=== PATIENT | female | born 2000 | race Caucasian/White ===

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

== ENCOUNTER 2021-02-12 22:52 | Emergency (ER) | payer OTHER ==
[~2021-02-12 22:52] MED LIST: ZOFRAN ODT 4 MG4 MG PO
[2021-02-13] MEDS ORDERED: TYLENOL325 MG PO (01:47)
== END 2021-02-13 01:55 | disposition home or self-care (01) ==
LOC: GENOP 22:52 → ER1 22:52 → EDSTATUS 23:05 → ER1 02-13 01:55
DX: O9A.212 Injury, poisoning and certain other consequences of external causes complicating pregnancy, second trimester (principal); R10.9 Unspecified abdominal pain; S09.90XA Unspecified injury of head, initial encounter; O99.332 Smoking (tobacco) complicating pregnancy, second trimester; F17.200 Nicotine dependence, unspecified, uncomplicated; Z3A.21 21 weeks gestation of pregnancy
CPT/HCPCS: 81001; 99284

== ENCOUNTER 2021-04-03 17:43 | Emergency (ER) | payer OTHER ==
[~2021-04-03 17:43] MED LIST changes: +TYLENOL325 MG PO
== END 2021-04-03 20:25 | disposition home or self-care (01) ==
LOC: ER1 17:43
DX: U07.1 COVID-19 (principal); F17.210 Nicotine dependence, cigarettes, uncomplicated
CPT/HCPCS: 99284; U0002

== ENCOUNTER 2021-06-11 20:26 | Outpatient (CLI) | payer OTHER | END 2021-06-11 21:56 | disposition home or self-care (01) | LOC: GENOP 20:26 | DX: O99.891 Other specified diseases and conditions complicating pregnancy (principal); R10.30 Lower abdominal pain, unspecified; M54.9 Dorsalgia, unspecified; Z3A.38 38 weeks gestation of pregnancy | CPT/HCPCS: 59025; 81001 ==

== ENCOUNTER 2021-06-13 10:21 | Inpatient (IN) | payer MEDICAID ==
[~2021-06-13] VITALS: Ht 175.3 cm; Wt 64.9 kg
[2021-06-13] MEDS ORDERED: PEPCID20 MG PO (11:43)
[2021-06-13] MEDS ORDERED: PRENATAL TABLE1 EAC1 PO (11:43)
[2021-06-13 11:47] LABS: HEMOGLOBIN 13.1 gm/dl (12.3-15.3); RED BLOOD COUNT 3.95 M/UL (4.00-5.10); WHITE BLOOD COUNT 8.1 K/UL (4.5-11.0)
[2021-06-13] MEDS ORDERED: COLACE 100MG C100 MG PO (17:56)
[2021-06-13] MEDS ORDERED: IBUPROFEN600 MG PO (17:56)
[2021-06-14 04:45] LABS: HEMOGLOBIN 11.2 gm/dl (12.3-15.3)
== END 2021-06-15 17:16 | disposition home or self-care (01) | DRG 807 ==
LOC: GENOP 10:21 → OB 11:25
PROVIDERS: ADMIT Obstetrics & Gynecology
PROC: 10E0XZZ Delivery of Products of Conception, External Approach (ICD-10-PCS; principal; 2021-06-13)
PROC: 0W8NXZZ Division of Female Perineum, External Approach (ICD-10-PCS; 2021-06-13)
PROC: 4A1HXCZ Monitoring of Products of Conception, Cardiac Rate, External Approach (ICD-10-PCS; 2021-06-13)
PROC: 3E0234Z Introduction of Serum, Toxoid and Vaccine into Muscle, Percutaneous Approach (ICD-10-PCS; 2021-06-13)
DX: O42.92 Full-term premature rupture of membranes, unspecified as to length of time between rupture and onset of labor (principal); Z37.0 Single live birth; Z3A.38 38 weeks gestation of pregnancy; Z20.822 Contact with and (suspected) exposure to COVID-19; F17.210 Nicotine dependence, cigarettes, uncomplicated; O99.334 Smoking (tobacco) complicating childbirth; O70.1 Second degree perineal laceration during delivery; Z23 Encounter for immunization
CPT/HCPCS: 36415; 51702; 82800; 83518; 85014; 85018; 85025; 90715; J2590; J7120; U0002

== ENCOUNTER → 2021-11-13 | Outpatient (CLI) | payer OTHER ==
[~2021-11-13] MED LIST changes: +COLACE 100MG C100 MG PO; +IBUPROFEN600 MG PO; +PEPCID20 MG PO; +PRENATAL TABLE1 EAC1 PO
== END ==
LOC: KOH-I 10:21
DX: M25.572 Pain in left ankle and joints of left foot (principal); M79.672 Pain in left foot
CPT/HCPCS: 73610; 73630

== ENCOUNTER 2022-01-03 11:21 | Emergency (ER) | payer OTHER ==
[2022-01-03 12:34] LABS: HEMOGLOBIN 15.1 gm/dl (12.3-15.3); RED BLOOD COUNT 4.79 M/UL (4.00-5.10); WHITE BLOOD COUNT 7.9 K/UL (4.5-11.0)
[2022-01-03 13:09] LABS: BUN/CREATININE RATIO 20 (0-10)
[2022-01-03] MEDS ORDERED: CEPHALEXIN500 M1 PO (14:29)
[2022-01-03] MEDS ORDERED: TOPAMAX50 MG PO (14:29)
== END 2022-01-03 15:09 | disposition home or self-care (01) ==
LOC: ER1 11:21
PROVIDERS: Physician Assistant
DX: N39.0 Urinary tract infection, site not specified (principal); F17.210 Nicotine dependence, cigarettes, uncomplicated
CPT/HCPCS: 80053; 80307; 81001; 84703; 85025; 99284